=== PATIENT | male | born 1970 ===

== ENCOUNTER 2017-03-01 20:19 | Emergency (ER) | payer SELFPAY ==
[2017-03-01 20:46] VITALS: BMI 30.9
[2017-03-01 20:47] VITALS: BP 146/83; PULSE 72; RESP 16; TEMP 97.9; O2SAT 99
--- NOTE | 2017-03-01 22:11 | C.PDOC ---
History Of Present Illness 46 y/o male c/o pain in left eye. feels like something in there. 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 pt went to [employer] [facility] worker who saw no fb in eye and told pt to go to ed. no blurred vision. Time Seen by Provider: 03/01/17 21:48 Chief Complaint (Nursing): Eye Problem History Per: Patient History/Exam Limitations: no limitations (8) Onset/Duration Of Symptoms: Hrs Current Symptoms Are (Timing): Still Present Severity: Moderate Pain Scale Rating Of: 8 Quality: "Pain" Associated Symptoms: FB Sensation Recent travel outside of the [place]: No Past Medical History Reviewed: Historical Data, Nursing Documentation, Vital Signs Vital Signs: Last Vital Signs Temp 97.9 F 03/01/17 20:46 Pulse 72 03/01/17 20:46 Resp 16 03/01/17 20:46 BP 146/83 03/01/17 20:46 Pulse Ox 99 03/03/17 10:09 - Medical History PMH: No Chronic Diseases Family History: States: Unknown Family Hx - Social History Hx Alcohol Use: No Hx Substance Use: No - Immunization History Hx Tetanus Toxoid Vaccination: No Hx Influenza Vaccination: No Hx Pneumococcal Vaccination: No Review Of Systems Eyes: Positive for: Pain, Conjunctivae Inflammation. Negative for: Vision Change, Eyelid Inflammation Physical Exam - Physical Exam Appears: Non-toxic, Other (uncomfortable) Skin: Warm, Dry Head: Atraumatic, Normacephalic Eye(s): bilateral: PERRL, EOMI, right: Normal Inspection, left: Other ( conjunctival injection) ED Course And Treatment O2 Sat by Pulse Oximetry: 99 Medical Decision Making Medical Decision Making: lefty eye examined, lid flipped, no fb noted. fluorescein stain used, 2 areas of uptake at 1 and 12 oclock, will update tetanus. d/c with antibiotic ointment for eye, f/u opthalmology Disposition Counseled Patient/Family Regarding: Studies Performed, Diagnosis, Need For Followup, Rx Given - Disposition Referrals: Sudheer Daigle MD [Staff Provider] - Disposition: HOME/ ROUTINE Disposition Time: 23:00 Condition: STABLE Additional Instructions: Use kaleb pomada de media pulgada en el edna jemal dos veces al da. [place] ibuprofeno para el dolor. Jolanta un seguimiento con un oculista en 1-2 eli sin falta. Use gafas protectoras siempre que jolanta un trabajo haciendo que las part culas vuelen para evitar daos a los ojos. Use ointment one half inch in left eye twice a day. Take ibuprofen for pain. Follow up with eye doctor in 1-2 days without fail. Wear goggles whenever doing work making particles fly around to avoid eye damage. Prescriptions: Ibuprofen [Motrin] 600 mg PO TID #30 tab Instructions: Corneal Abrasion (ED) Forms: Gen Discharge Inst British, [employer] [facility] Connect (British) Print Language: MALAGASY - Clinical Impression Clinical Impression: Corneal abrasion
[2017-03-01] MEDS ORDERED: Fluorescein 1 mg Ophthalmic Strip OS ONE (22:12)
[2017-03-01] MEDS ORDERED: Fluorescein 1 mg Ophthalmic Strip ONE (22:27)
[2017-03-01] MEDS ORDERED: Tobramycin 0.3% OPH OINT OS STA (22:50)
[2017-03-01] MEDS ORDERED: Tobramycin 0.3% OPH OINT ONE (23:00)
[2017-03-01] MEDS ORDERED: Acetaminophen 650mg/20.3ml solution UD ONE (23:16)
== END 2017-03-01 23:13 | disposition home or self-care (01) ==
LOC: C.ER 20:19
DX: S05.02XA Injury of conjunctiva and corneal abrasion without foreign body, left eye, initial encounter (principal); X58.XXXA Exposure to other specified factors, initial encounter; Y92.89 Other specified places as the place of occurrence of the external cause; Y99.0 Civilian activity done for income or pay
CPT/HCPCS: 90471; 90715; 96372; 99284; J1885